=== PATIENT | male | born 1995 | race Two or more races ===

== ENCOUNTER 2019-04-19 23:25 | Emergency (ER) | payer SELFPAY ==
[~2019-04-19] VITALS: Ht 198.1 cm; Wt 72.6 kg
--- NOTE | 2019-04-20 00:15 | NUR ---
ED Nurse Note: Patient walked in to ER c/o fracture of her right arm. AAO x4, VSS at this time.
[2019-04-20 00:20] VITALS: BP 128/69
[2019-04-20] MEDS ORDERED: HYDROcodone/Acetamin 5/325 tab ORAL ONE (00:30)
[2019-04-20] MEDS ORDERED: HYDROCODON-ACE1 EA15 ORAL (01:14)
[2019-04-20] MEDS ORDERED: IBUPROFEN600 MG ORAL (01:14)
--- NOTE | 2019-04-20 01:14 | Emergency Room Report ---
History of Present Illness General Chief Complaint: Upper Extremity Injury Source: Patient Present Illness HPI Is a 24-year-old transgender female who is right-hand dominant. She presents with complaint of right arm pain. She tripped and fell 3 days ago. Landed on an edge of the pavement. Complaining of forearm pain. It swollen. Tender to palpation. Worse with movement. 8 out of 10. Denies any other injury. Allergies: Coded Allergies: No Known Allergies (Unverified , 04/20/19) Patient History Past Medical History: see triage record, old chart reviewed Past Surgical History: other Pertinent Family History: none Social History: Denies: smoking Immunizations: other Reviewed Nursing Documentation: PMH: Agreed; PSxH: Agreed Nursing Documentation-PMH Past Medical History: No Stated History Review of Systems Eye: Denies: eye pain, blurred vision ENT: Denies: ear pain, nose congestion, throat swelling Respiratory: Denies: cough, shortness of breath Cardiovascular: Denies: chest pain, palpitations Gastrointestinal: Denies: abdominal pain, diarrhea, nausea, vomiting Musculoskeletal: Reports: muscle pain; Denies: back pain, joint pain Skin: Denies: rash Neurological: Denies: headache, numbness Endocrine: Denies: increased thirst, increased urine Hematologic/Lymphatic: Denies: easy bruising All Other Systems: negative except mentioned in HPI Physical Exam Vital Signs Date Time Temp Pulse Resp B/P (MAP) Pulse Ox O2 Delivery O2 Flow Rate FiO2 04/20/19 00:05 98.2 67 18 128/69 (88) 97 Room Air Vitals normal Sp02 EP Interpretation: reviewed, normal General Appearance: well appearing, no apparent distress, alert Head: normocephalic, atraumatic Eyes: bilateral eye PERRL, bilateral eye EOMI ENT: hearing grossly normal, normal pharynx Neck: full range of motion, supple, no meningismus Respiratory: chest non-tender, lungs clear, normal breath sounds Cardiovascular #1: regular rate, rhythm, no murmur Gastrointestinal: normal bowel sounds, non tender, no mass, no organomegaly, no bruit, non-distended Musculoskeletal: back normal, gait/station normal, normal range of motion, other - Right forearm: There is tenderness and swelling to the midshaft. Tender to palpation. Elbow nontender. Wrist nontender. Psychiatric: mood/affect normal Procedures Splinting Splinting : Consent: Verbal Location: At forearm Hand-Made Type: plaster Splint: sugar-tong Pre-Proc Neuro Vasc Exam: normal Post-Proc Neuro Vasc Exam: normal Patient Tolerated: Well Complications: None Medical Decision Making Diagnostic Impression: Primary Impression: Ulna distal fracture Qualified Codes: S52.601A - Unspecified fracture of lower end of right ulna, initial encounter for closed fracture ER Course Patient with a distal ulnar fracture. Mildly displaced. No dislocation. Will discharge home. Other X-Ray Diagnostic Results Other X-Ray Diagnostic Results : X-Ray ordered: Right forearm xrays # of Views/Limited Vs Complete: 3 View Indication: Pain EP Interpretation: Yes Interpretation: no dislocation, no soft tissue swelling, other - ulna frx Impression: Other - ulna frx Electronically Signed by: Pavan Ford MD Last Vital Signs Date Time Temp Pulse Resp B/P (MAP) Pulse Ox O2 Delivery O2 Flow Rate FiO2 04/20/19 00:05 98.2 67 18 128/69 (88) 97 Room Air Status: improved Disposition: HOME, SELF-CARE Condition: Stable Scripts Ibuprofen* (MOTRIN*) 600 Mg Tablet 600 MG ORAL THREE TIMES A DAY, #30 TAB 0 Refills Prov: Pavan Ford MD 04/20/19 Hydrocodone/Acetaminophen 5-325* (HYDROCODONE/ACETAMINOPHEN 5-325*) 1 Each Tablet 1 TAB ORAL Q6H PRN for For Pain, #30 TAB 0 Refills Prov: Pavan Ford MD 04/20/19 Referrals: NON PHYSICIAN (PCP) Additional Instructions: Elevate arm. Ice pack to the area. Wear splint. Follow up with your doctor in 7 days. You will need a referral to see orthopedic doctor. Return if worse. Pavan Ford MD Apr 20, 2019 01:14
[2019-04-20 01:20] VITALS: BP 128/69
--- NOTE | 2019-04-20 01:20 | NUR ---
ED Nurse Note: Pt cleared by health care Provider for discharge. DC instructions/prescription was given and explained to pt and verbalized understanding of teachings. All medical deviecs such as ID band removed. Pt is AAO x4, ambulatory and left with all personal belongings.
--- NOTE | 2019-04-20 16:06 | Diagnostic Imaging Report ---
Indications: Pain, trauma, status post fall yesterday Technique: Two views of the right forearm Comparison: None Findings: There is a transverse slightly comminuted fracture of the distal ulnar shaft. This is displaced posteriorly by nearly one bone width. No significant angulation or override. No other acute fractures. No associated radial fracture. No radiopaque foreign body. Impression: Positive for distal ulnar fracture. This agrees with the preliminary interpretation reported by the emergency room physician in the electronic medical record
== END 2019-04-20 01:20 | disposition home or self-care (01) ==
LOC: EMR 04-20 00:30
DX: S52.601A Unspecified fracture of lower end of right ulna, initial encounter for closed fracture (principal); W01.0XXA Fall on same level from slipping, tripping and stumbling without subsequent striking against object, initial encounter; Y92.89 Other specified places as the place of occurrence of the external cause
CPT/HCPCS: 29125; 99283

== ENCOUNTER 2019-11-14 13:24 | Emergency (ER) | payer MEDICAID ==
[~2019-11-14] VITALS: Ht 170.2 cm; Wt 59.0 kg
[~2019-11-14 13:24] MED LIST: HYDROCODON-ACE1 EA15 ORAL; IBUPROFEN600 MG ORAL
[2019-11-14 13:36] VITALS: BP 127/78
--- NOTE | 2019-11-14 13:42 | Emergency Room Report ---
History of Present Illness General Chief Complaint: Back Pain-No Injury Source: Patient Present Illness HPI 24-year-old Cypriot-speaking male, possible transgender, here complaining of low back pain x3 weeks. Denies any fall or injury or lifting heavy objects. Denies any pain radiation at this time. Reports that at times the pain is worsened with bending forward. Denies any saddle paresthesia, urinary or bowel incontinence. Denies tingling and numbness. Has not taken medication for symptom relief. Denies any generalized body aches, fever and chills, and all other URI symptoms. Denies urinary frequency and urgency. Denies hematuria. COVID-19 risk:Contact w/high r: No COVID-19 risk:Travel to affect: No Has patient experienced apscal: No Allergies: Coded Allergies: No Known Allergies (Unverified , 04/20/19) Patient History Past Medical History: see triage record Past Surgical History: none Pertinent Family History: none Immunizations: UTD Reviewed Nursing Documentation: PMH: Agreed; PSxH: Agreed Review of Systems All Other Systems: negative except mentioned in HPI Physical Exam Vital Signs Date Time Temp Pulse Resp B/P (MAP) Pulse Ox O2 Delivery O2 Flow Rate FiO2 11/14/19 13:29 98.2 72 16 127/78 (94) 98 Room Air Sp02 EP Interpretation: reviewed, normal General Appearance: no apparent distress, alert, GCS 15, non-toxic Head: normocephalic, atraumatic Eyes: bilateral eye normal inspection, bilateral eye PERRL ENT: hearing grossly normal, normal pharynx, no angioedema, normal voice Neck: full range of motion, supple/symm/no masses Respiratory: chest non-tender, lungs clear, normal breath sounds, no rhonchi, speaking full sentences Cardiovascular #1: regular rate, rhythm, no edema Gastrointestinal: normal bowel sounds, non tender, soft, non-distended, no guarding, no rebound Genitourinary: no CVA tenderness Musculoskeletal: back normal, digits/nails normal, no calf tenderness, pelvis stable, gait/station normal, non-tender Neurologic: alert, motor strength/tone normal, oriented x3, sensory intact, responsive, speech normal Psychiatric: judgement/insight normal, memory normal, mood/affect normal, no suicidal/homicidal ideation Skin: no rash Lymphatic: no adenopathy Medical Decision Making PA Attestation All my diagnosis and treatment plans were reviewed ad discussed with my supervising physician Dr. Beatty Diagnostic Impression: Primary Impression: Lumbar strain ER Course 24-year-old [place]riot-speaking male, possible transgender, here complaining of low back pain x3 weeks. Denies any fall or injury or lifting heavy objects. Denies any pain radiation at this time. Reports that at times the pain is worsened with bending forward. Denies any saddle paresthesia, urinary or bowel incontinence. Denies tingling and numbness. Has not taken medication for symptom relief. Denies any generalized body aches, fever and chills, and all other URI symptoms. Denies urinary frequency and urgency. Denies hematuria. Ddx considered but are not limited to: Lumbar spine sprain, strain, fracture, contusion, neuropathy Vital signs: are WNL, pt. is afebrile H&PE are most consistent with: Lumbar strain ORDERS: No x-ray necessary at this time patient no fall or injure himself. Tylenol, lidocaine patch as I am trying to avoid writing Motrin and anything within Motrin family altogether times of pandemic. ER intervention: None DISCHARGE: At this time pt. is stable for d/c to home. Will provide printed patient care instructions, and any necessary prescriptions. Care plan and follow up instructions have been discussed with the patient prior to discharge. Alternate between icing and heating the affected area, take medication as directed, follow primary care doctor, if worsening symptoms return to the emergency room Last Vital Signs Date Time Temp Pulse Resp B/P (MAP) Pulse Ox O2 Delivery O2 Flow Rate FiO2 11/14/19 13:36 98.2 86 16 127/78 98 Room Air Disposition: HOME, SELF-CARE Condition: Stable Scripts Lidocaine Patch* (Lidoderm Patch*) 1 Each Adh..patch 1 PATCH TOPIC DAILY, #30 PATCH Patch(es) may remain in place for up to 12 hours in any 24-hour period. Prov: Chepe Joshua 11/14/19 Acetaminophen* (TYLENOL EXTRA STRENGTH*) 500 Mg Tablet 500 MG ORAL Q6H PRN for Mild Pain/Temp > 100.5, #30 TAB 0 Refills Prov: Chepe Joshua 11/14/19 Patient Instructions: Back Pain, Adult, Lumbosacral Strain Additional Instructions: Take medication as directed, follow-up with primary care provider, avoid strenuous physical activity, alternate between icing and heating the affected area. Chepe Joshua Nov 14, 2019 13:42
[2019-11-14] MEDS ORDERED: LIDODERM700 M1 TOPIC (13:43)
[2019-11-14] MEDS ORDERED: TYLENOL EXTRA500 MG ORAL (13:43)
== END 2019-11-14 13:45 | disposition home or self-care (01) ==
LOC: EMR 13:45
DX: S39.012A Strain of muscle, fascia and tendon of lower back, initial encounter (principal); X58.XXXA Exposure to other specified factors, initial encounter; Y92.9 Unspecified place or not applicable
CPT/HCPCS: 99282

== ENCOUNTER 2020-03-10 11:20 | Emergency (ER) | payer MEDICAID ==
[~2020-03-10 11:20] MED LIST changes: +LIDODERM700 M1 TOPIC; +TYLENOL EXTRA500 MG ORAL
[2020-03-10] MEDS ORDERED: Ketorolac 30mg Inj IV ONE (11:45)
[2020-03-10] MEDS ORDERED: NAPROXEN500 M2 ORAL (13:05)
== END 2020-03-10 13:25 | disposition home or self-care (01) ==
DX: R07.9 Chest pain, unspecified (principal); B20 Human immunodeficiency virus [HIV] disease
CPT/HCPCS: 36415; 71045; 80053; 80307; 82550; 83735; 84484; 85025; 85379; 93005; 96361; 96374; J1885; J7030; Z7502